=== PATIENT | male | born 1955 | race Caucasian/White ===

== ENCOUNTER → 2020-10-07 08:30 | Outpatient (CLI) | payer OTHER, SELFPAY ==
[2020-10-07] MEDS: COVID-19 VACC #1, MRNA(MOD) 100 MCG/0.5 ML VIAL IM (08:35)
== END ==
PROVIDERS: Visit Provider Internal Medicine
DX: Z23 Encounter for immunization (principal)
CPT/HCPCS: 0011A; 91301

== ENCOUNTER → 2020-11-04 08:16 | Outpatient (CLI) | payer OTHER, SELFPAY ==
[2020-11-04] MEDS: COVID-19 VACC #2, MRNA(MOD) 100 MCG/0.5 ML VIAL IM (08:20)
== END ==
PROVIDERS: Visit Provider Internal Medicine
DX: Z23 Encounter for immunization (principal)
CPT/HCPCS: 0012A; 91301

== ENCOUNTER 2021-09-17 20:57 | Emergency (ER) | payer OTHER, SELFPAY ==
[2021-09-17] VITALS (12 sets, daily range): BP systolic 118–156; BP diastolic 60–83; PULSE 73–90; RESP 14–21; TEMP 36.8; O2SAT 95–98; BMI 25.2
--- NOTE | 2021-09-17 20:58 | DI.CT.S_ITS ---
PROCEDURE: CT CERVICAL SPINE WO CON INDICATIONS: trauma w/ head injury, + LOC TECHNIQUE: Noncontrast 3 mm thick sections acquired from the skull base to the T4 level. Sagittal and coronal reformats were then constructed. For radiation dose reduction, the following was used: automated exposure control, adjustment of mA and/or kV according to patient size. COMPARISON: None. FINDINGS: Image quality: Excellent. Bones: No acute fractures or dislocations. Visualized superior ribs are intact. Straightening of the cervical spine may be secondary to positioning or muscle spasm. Multilevel disc space narrowing and degenerative endplate changes noted. There are multilevel facet and uncovertebral joint hypertrophy. Soft tissues: Prevertebral soft tissues are normal in thickness. No paravertebral hematomas. No apical pneumothoraces. IMPRESSION: No acute cervical spine fracture or subluxation. Multilevel spondylosis. Dictated by: Roge Carr M.D. on 09/17/2021 at 21:51 Approved by: Roge Carr M.D. on 09/17/2021 at 21:53
--- NOTE | 2021-09-17 20:58 | DI.CT.S_ITS ---
PROCEDURE: CT HEAD/BRAIN WO CON INDICATIONS: trauma w/ head injury, + LOC TECHNIQUE: Noncontrast 4.5 mm thick angled axial sections acquired from the foramen magnum to the vertex, with coronal and sagittal reformats. For radiation dose reduction, the following was used: automated exposure control, adjustment of mA and/or kV according to patient size. COMPARISON: None. FINDINGS: Image quality: Excellent. CSF spaces: Basal cisterns are patent. No extra-axial fluid collections. Ventricles are normal in size and shape. Brain: No midline shift. No intracranial masses or hemorrhage. Colmenares-white matter interface is normal. Skull and face: Right frontal scalp laceration is seen. Calvarium and visualized facial bones are intact, without suspicious lesions. Sinuses: Visualized sinuses and mastoids are clear. IMPRESSION: Right frontal scalp laceration. No skull fracture. No acute intracranial abnormality. Dictated by: Roge Carr M.D. on 09/17/2021 at 21:20 Approved by: Roge Carr M.D. on 09/17/2021 at 21:22
[2021-09-17] MEDS: SODIUM CHLORIDE 0.9% 1,000 ML 1000 ML IV (21:50)
[2021-09-17 21:59] LABS: Add Manual Diff / Slide Review NO; Basophils Absolute Auto 0 /uL (0-100); Basophils Percent Auto 0.4 % (0-2); Eosinophils Absolute Auto 100 /uL (0-450); Eosinophils Percent Auto 1.7 % (2-4); Hemoglobin 14.7 g/dL (13.5-17.5); Lymphocytes Absolute Auto 2000 /uL (1100-4500); Lymphocytes Percent Auto 29.5 % (25-40); Mean Corpuscular HGB Conc 33.4 % (30-36); Mean Corpuscular Hemoglobin 30.3 PG (26-34); Mean Corpuscular Volume 90.7 fL (80-100); Monocytes Absolute Auto 600 /uL (0-900); Monocytes Percent Auto 9.4 % (3-14); Neutrophils Absolute Auto 3900 /uL (1500-7000); Platelet Count 226 X10^3/uL (150-400); Red Blood Cell Count 4.85 X10^6/uL (4.5-5.9); Red Cell Distribution Width 12.8 % (11.6-14.8); White Blood Cell Count 6.6 X10^3/uL (4.5-11.0)
[2021-09-17 22:06] LABS: Alanine Aminotransferase 17 IU/L (<50); Albumin 4.1 g/dL (3.5-5.0); Albumin Globulin Ratio 1.6 (1.0-2.8); Alkaline Phosphatase 62 U/L (38-126); Aspartate Aminotransferase 27 IU/L (17-59); BUN Creatinine Ratio 12.7 (6-22); Bilirubin Total 0.7 mg/dL (0.2-1.3); Blood Urea Nitrogen 13 mg/dL (9-20); Calcium 8.6 mg/dL (8.4-10.2); Carbon Dioxide 30 mmol/L (22-32); Chloride 99 mmol/L (98-107); Estimated Glomerular Filt Rate > 60.0 mL/min (>60); Ethanol (ETOH) 129 mg/dL; Globulin 2.6 g/dL (1.7-4.1); Glucose 129 mg/dL (80-110); HEMOLYSIS < 15 (0-50); Potassium 3.7 mmol/L (3.4-5.1); Sodium 136 mmol/L (137-145); Total Protein 6.7 g/dL (6.3-8.2)
[2021-09-17 22:18] LABS: COVID19 -Nasal RAPID Negative (Negative)
[2021-09-18] VITALS: BP 129/73; PULSE 76; RESP 17; O2SAT 94
--- NOTE | 2021-09-18 00:09 | ED.GENADULT ---
HPI - General Adult General Chief complaint: Trauma Stated complaint: trauma Time Seen by Provider: 09/17/21 21:02 Source: patient and EMS Mode of arrival: EMS History of Present Illness HPI narrative: 65-year-old gentleman was up for some drinks this evening had more than he usually does including very small amount of THC, in getting up to go the bathroom he became unsteady fell to the floor suffered a large laceration to his head, positive loss of consciousness and significant amount of vomiting. He complains of some mild head pain, no neck pain and no other complaints this time. Related Data Allergies Allergy/AdvReac Type Severity Reaction Status Date / Time No Known Drug Allergies Allergy Verified 09/17/21 21:13 Review of Systems Review of Systems Narrative: Pertinent positive and negative findings as per HPI Remainder of review of systems is otherwise unremarkable for Constitutional: Fevers, chills, weakness ENT: No sore throat, neck pain, ear pain CV: Chest pain, palpitations, Respiratory: Cough, wheeze, dyspnea GI: diarrhea, : Dysuria, hematuria, Patient History Social History Smoking Status: Former smoker Smoking Status: Former smoker alcohol intake frequency: a few times a week Alcohol type: beer Substance Use Type: marijuana Exam Initial Vital Signs Initial Vital Signs: Vital Signs Temperature 98.3 F 09/17/21 21:13 Pulse Rate 73 09/17/21 21:13 Respiratory Rate 19 09/17/21 21:13 Blood Pressure 149/83 H 09/17/21 21:13 Pulse Oximetry 95 09/17/21 21:13 General: no acute distress. Able to give a complete and coherent history. Well-nourished well-developed HEENT: Moist mucous membranes, normal sclera with reactive pupils,Large head wound, right temporal area. Neck: No JVD, supple, no midline tenderness Respiratory: Lungs are clear to auscultation, no wheezing no rales no rhonchi. Full and symmetrical air movement Cardiac: Regular rate and rhythm no murmurs no bruits Abdomen: Soft, nontender, good bowel tones, no flank pain Spine: No tenderness along thoracic lumbar spine or pelvic ring. Skin: Warm and dry, no rashes Neurologic: Grossly neurologically intact with no obvious asymmetries or abnormalities Extremities: No trauma, well perfused Psych: Cooperative, appropriate insight and affect Procedures Laceration Repair Scalp: Time of procedure: 01:08 Site: scalp Side (If applicable): right Size (cm): 10 Description: flap Depth: involves muscle layer Local Anesthetic: lidocaine 1% Amount of anesthesia used (mL): 10 Pre-repair: wound explored, irrigated extensively and deep structures intact Skin layer closed with: jorge Number of sutures: 12 Course Orders Ordered: ED Orders 09/17/21 20:58 CT cervical spine wo con Stat CT head/brain wo con Stat 09/17/21 21:28 Complete Blood Count AUTO DIFF Stat Comprehensive Metabolic Panel Stat Ethanol (ETOH) Stat 09/17/21 21:40 COVID19 -Nasal swab/Pre-Proc Stat Discontinued Medications Bacitracin (Bacitracin Oint 0.9 Gm Pckt) 3 applic TOP NOW ONE Stop: 09/18/21 00:26 Last Admin: 09/18/21 00:33 Dose: 2 applic Documented by: Diphtheria/Tetanus/Acell Pertussis (Tet,Diph,Pertuss(Acell),Vac/Pf 0.5 Ml Syringe) 0.5 ml IM .ONCE ONE Stop: 09/18/21 00:36 Last Admin: 09/18/21 00:37 Dose: 0.5 ml Documented by: Sodium Chloride (Normal Saline 0.9%) 1,000 mls @ 1,000 mls/hr IV BOLUS ONE Stop: 09/17/21 22:38 Last Infusion: 09/17/21 22:55 Dose: 0 mls/hr Documented by: Admin: 09/17/21 21:50 Dose: 1,000 mls/hr Documented by: LOKI Vital Signs Vital signs: Vital Signs - 8 hr 09/17/21 21:13 09/17/21 21:21 09/17/21 21:30 Temperature 98.3 F Pulse Rate 73 74 74 Respiratory Rate 19 17 Blood Pressure 149/83 H 137/78 Pulse Oximetry 95 97 96 09/17/21 21:45 09/17/21 22:00 09/17/21 22:15 Temperature Pulse Rate 75 77 76 Respiratory Rate 20 17 14 Blood Pressure 139/79 128/72 118/60 Pulse Oximetry 96 95 95 09/17/21 22:30 09/17/21 22:45 09/17/21 23:00 Temperature Pulse Rate 76 78 81 Respiratory Rate 14 17 19 Blood Pressure 127/64 137/73 156/80 H Pulse Oximetry 96 98 98 09/17/21 23:15 09/17/21 23:30 09/17/21 23:45 Temperature Pulse Rate 90 78 79 Respiratory Rate 21 19 17 Blood Pressure 144/78 H Pulse Oximetry 96 97 95 09/18/21 00:00 09/18/21 00:15 09/18/21 00:30 Temperature Pulse Rate 76 86 96 H Respiratory Rate 17 23 25 H Blood Pressure 129/73 162/84 H Pulse Oximetry 94 96 96 Medical Decision Making Lab Data Result diagrams: 09/17/21 21:28 09/17/21 21:28 Labs: Lab Results 09/17/21 09/17/21 09/17/21 Range/Units 21:28 21:28 21:40 WBC 6.6 (4.5-11.0) X10^3/uL RBC 4.85 (4.5-5.9) X10^6/uL Hgb 14.7 (13.5-17.5) g/dL Hct 44.0 (41-53) % MCV 90.7 (80-100) fL MCH 30.3 (26-34) PG MCHC 33.4 (30-36) % RDW 12.8 (11.6-14.8) % Plt Count 226 (150-400) X10^3/uL Neut % (Auto) 59.0 (50-75) % Lymph % (Auto) 29.5 (25-40) % [place] % (Auto) 9.4 (3-14) % Eos % (Auto) 1.7 L (2-4) % Baso % (Auto) 0.4 (0-2) % Neut # (Auto) 3900 (6695-2806) /uL Lymph # (Auto) 2000 (5094-3638) /uL [place] # (Auto) 600 (0-900) /uL Eos # (Auto) 100 (0-450) /uL Baso # (Auto) 0 (0-100) /uL Sodium 136 L (137-145) mmol/L Potassium 3.7 (3.4-5.1) mmol/L Chloride 99 (98-107) mmol/L Carbon Dioxide 30 (22-32) mmol/L BUN 13 (9-20) mg/dL Creatinine 1.02 (0.66-1.25) mg/dL Estimated GFR > 60.0 (>60) mL/min BUN/Creatinine Ratio 12.7 (6-22) Glucose 129 H (80-110) mg/dL Calcium 8.6 (8.4-10.2) mg/dL Total Bilirubin 0.7 (0.2-1.3) mg/dL AST 27 (17-59) IU/L ALT 17 (<50) IU/L Alkaline Phosphatase 62 (38-126) U/L Total Protein 6.7 (6.3-8.2) g/dL Albumin 4.1 (3.5-5.0) g/dL Globulin 2.6 (1.7-4.1) g/dL Albumin/Globulin Ratio 1.6 (1.0-2.8) Ethyl Alcohol 129 H ( - 10) mg/dL SARS-CoV-2 (PCR) Negative (Negative) Imaging Data CT scan - head: Radiologist's Impression: FINDINGS:? Image quality:? Excellent.? ? CSF spaces:? Basal cisterns are patent.? No extra-axial fluid collections.? Ventricles are normal in size and shape.? ? Brain:? No midline shift.? No intracranial masses or hemorrhage.? Colmenares-white matter interface is normal.? ? Skull and face:? Right frontal scalp laceration is seen.? Calvarium and visualized facial bones are intact, without suspicious lesions.? ? Sinuses:? Visualized sinuses and mastoids are clear.? ? IMPRESSION:? Right frontal scalp laceration.? No skull fracture.? No acute intracranial abnormality. ? ? Dictated by: Roge Carr M.D. on 09/17/2021 at 21:20 ? ? CT - cervical spine: Radiologist's Impression: FINDINGS:? Image quality:? Excellent.? ? Bones:? No acute fractures or dislocations.? Visualized superior ribs are intact.? Straightening of the cervical spine may be secondary to positioning or muscle spasm.? Multilevel disc space narrowing and degenerative endplate changes noted.? There are multilevel facet and uncovertebral joint hypertrophy. ? Soft tissues:? Prevertebral soft tissues are normal in thickness.? No paravertebral hematomas.? No apical pneumothoraces.? ? ? IMPRESSION:? No acute cervical spine fracture or subluxation.? Multilevel spondylosis. ? ? ? Dictated by: Roge Carr M.D. on 09/17/2021 at 21:51 ? ? MDM Narrative Medical decision making narrative: 65-year-old gentleman slightly intoxicated in the setting of minimal alcohol use. Was feeling somewhat nauseated was going to the bathroom unsteady fell hit his head positive loss of consciousness positive emesis. CT scans are unremarkable with no intracranial hemorrhage no cervical spine injury. Clinical exam does not suggest any other areas of injury. He has a 10 cm flap laceration to the right temporal area that is cleaned and stapled with minimal complication. He has tolerated the procedure well. No signs of stroke or alternate explanation for the dizziness that led to the fall that led to the laceration. He is clinically stable and safe for discharge home with his . Discharge Plan Departure Patient Disposition: Home Clinical Impression: Concussion Syncope Qualifiers: Syncope type: unspecified Qualified Code(s): R55 - Syncope and collapse Fall Qualifiers: Encounter type: initial encounter Qualified Code(s): W19.XXXA - Unspecified fall, initial encounter Laceration of head Qualifiers: Encounter type: initial encounter Location of open wound of head: scalp Foreign body presence: without foreign body Qualified Code(s): S01.01XA - Laceration without foreign body of scalp, initial encounter Instructions: DI for Concussion, DI for Laceration Repair of the Scalp Activity Restrictions/Additional Instructions: I am sorry that you ended up feeling a bit dizzy, falling and then suffering a large scalp laceration. It does appear that the slight dizziness was from the alcohol with no alternate explanations such as stroke or heart attack identified this evening. The CT scan of your head does not show a skull fracture or bleeding inside her brain. Your neck has no broken bones or obvious spinal cord injury. The large laceration to the right side of your head was stapled closed. It would be unusual for a scalp laceration to become infected however if you are noticing increased pain, redness or any discharge you do need to return to the emergency department You need to have the jorge removed on or about October 02. Replace the dressing if it seems saturated with blood and at least once a day. By definition, you also have a concussion. I am going to give you a prescription for ondansetron/Zofran to help with nausea, a common symptom with concussion. Using 400 mg of ibuprofen (2 [id number] pills) and 1 Tylenol every 6 hours can be very helpful in controlling pain. If you have new or developing symptoms please feel free to return to the emergency department Referrals: Gunner Ahn MD [Primary Care Provider] -
[2021-09-18 00:15] VITALS: PULSE 86; RESP 23; O2SAT 96
[2021-09-18 00:30] VITALS: BP 162/84; PULSE 96; RESP 25; O2SAT 96
[2021-09-18] MEDS: BACITRACIN OINT 0.9 GM PCKT 3 APPLIC TOP (00:33)
[2021-09-18] MEDS: TET,DIPH,PERTUSS(ACELL),VAC/PF 0.5 ML SYRINGE IM (00:37)
== END 2021-09-18 01:22 | disposition home or self-care (01) ==
PROVIDERS: Emergency Provider Emergency Medicine; PCP Family Medicine
DX: S06.0X9A Concussion with loss of consciousness of unspecified duration, initial encounter (principal); S01.01XA Laceration without foreign body of scalp, initial encounter; Z87.891 Personal history of nicotine dependence; W19.XXXA Unspecified fall, initial encounter; Y93.89 Activity, other specified; Z23 Encounter for immunization; Z20.822 Contact with and (suspected) exposure to COVID-19
CPT/HCPCS: 12004; 70450; 72125; 80053; 80320; 85025; 87635; 90471; 96360; 99284; 99285; C9803; 90715